=== PATIENT | female | born 1970 | race Caucasian/White ===

== ENCOUNTER 2018-03-07 08:34 | Day surgery (SDC) | payer OTHER ==
[~2018-03-07] VITALS: Ht 162.6 cm; Wt 64.9 kg
[~2018-03-07 08:34] MED LIST: TOPAMAX25 MG PO
--- NOTE | 2018-03-07 11:10 | NUR ---
03/07/18 1110 Kellie Joya 1103 PT ARRIVED TO PACU, WITH BP CUFF IN LOW LEFT LEG DUR TO PERVIOUS PROCEDURES. PT REACTIVE. RESP EVEN AND UNLABORED.
--- NOTE | 2018-03-07 12:09 | NUR ---
TOO SLEEPY SO WILL OBSERVE LONGER.
--- NOTE | 2018-03-07 15:13 | NUR ---
at 1207 on return pt very sleepy friend in room. allow pt to sleep.
--- NOTE | 2018-03-07 15:14 | NUR ---
1500 friend reports pt ready to go home.
--- NOTE | 2018-03-07 15:14 | NUR ---
le 1320 pt conts to sleep. friend at bedside. resp deep even.
--- NOTE | 2018-03-07 15:18 | NUR ---
when upto wc a little dizzy. enc to go slow.
--- NOTE | 2018-03-08 08:47 | OR ---
[facility] [address] [place], [place] [address] Signed DATE OF OPERATION: 03/07/2018 SURGEON: Joby Leon MD PREOPERATIVE DIAGNOSES: 1. Personal history of colonic polyps in 1992. 2. Constipation. 3. Hemorrhoidectomy. 4. Possible paternal uncle with colon cancer. POSTOPERATIVE DIAGNOSIS: Long redundant colon. PROCEDURE: Colonoscopy without biopsy. ESTIMATED BLOOD LOSS: None. 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 She had colonic polyps removed around 1992 over in [place], [place]. She thinks maybe her paternal uncle had colon cancer, but she is not sure. She also has chronic constipation and goes to bathroom every 4-5 days. She talked about previous hemorrhoid surgery. In the office, I gave her a pamphlet on colonoscopy. We looked at that together along with the risks including, but not limited to gas bloating, crampy abdominal pain, bleeding, perforation, requiring surgery, and missed diagnosis. We also discussed the need for IV conscious sedation. She had expressed understanding and wished to proceed. PROCEDURE NOTE: Nicole was taken into our endoscopy suite and placed in the left lateral decubitus position. She was given 12 mg of Versed and 200 mcg fentanyl to cover the entire case. A digital rectal exam was performed and this was unremarkable. The adult colonoscope was introduced and advanced under direct visualization of camera. We found that she has a long redundant colon. There was quite a bit of colon between the splenic and hepatic flexures. We eventually made our way around hepatic flexure and into the right colon. We were never 100% satisfied that we saw the cecum. We thought maybe we saw the appendiceal orifice, but we were not sure. We never could comfortably identify the ileocecal valve or [place]. Consequently, she might consider a barium enema to make Electronically Signed By: JOBY LEON MD 03/08/18 0847 PATIENT NAME: NICOLE ADAM OPERATIVE REPORT DATE OF : 66 REPORT #: [id number] PHYSICIAN: JOBY LEON MD PCP: Miguel Richmond DO REPORT IS CONFIDENTIAL AND NOT TO BE RELEASED WITHOUT AUTHORIZATION [facility] [address] [place] [id number] Signed sure the cecum was clear of any lesions. However, prep was good. The scope was then slowly withdrawn. We saw no pathology throughout her long redundant colon. The rectum was unremarkable. Upon retroflexion of the scope, there was no additional pathology noted above the anal canal. After this, the gas was suctioned out. The colonoscope removed. Nicole tolerated the procedure quite well. RECOMMENDATIONS: I will see Nicole back in my office in 7 to 14 days to review her results. We will recommend a barium enema for her to evaluate that right colon and cecum. Joby Leon MD ALB/MODL /[id number] cc: Serjio ConnellMD Tara MD Andrew L Bower, MD Jonas H Oltman, DO Michael John Brunsman, MD Delores Shaikh MD Copies: SERJIO CONNELL MD, KATHERINE MD BOWER,JOBY Richmond,Miguel CROSS,JONO HILL MD Electronically Signed By: JOBY LEON MD 03/08/18 0847 PATIENT NAME: NICOLE ADAM OPERATIVE REPORT DATE OF : 66 REPORT #: [id number] PHYSICIAN: JOBY LEON MD PCP: Miguel Richmond DO REPORT IS CONFIDENTIAL AND NOT TO BE RELEASED WITHOUT AUTHORIZATION [facility] [address] [place] [address] [place] [address] Signed DELORES SHAIKH MD Electronically Signed By: JOBY LEON MD 03/08/18 0847 PATIENT NAME: NICOLE ADAM OPERATIVE REPORT DATE OF : 66 REPORT #: [id number] PHYSICIAN: JOBY LEON MD PCP: Miguel Richmond DO REPORT IS CONFIDENTIAL AND NOT TO BE RELEASED WITHOUT AUTHORIZATION
== END 2018-03-07 15:20 | disposition home or self-care (01) ==
LOC: DS 08:34 → OPS 08:34 → DS 09:45 → OPS 15:20
PROVIDERS: Colon & Rectal Surgery
PROC: 0DJD8ZZ Inspection of Lower Intestinal Tract, Via Natural or Artificial Opening Endoscopic (ICD-10-PCS; principal; 2018-03-07 09:45)
DX: Q43.8 Other specified congenital malformations of intestine (principal); K59.09 Other constipation; Z86.010 Personal history of colon polyps; Z98.890 Other specified postprocedural states; Z88.8 Allergy status to other drugs, medicaments and biological substances; Z79.899 Other long term (current) drug therapy
CPT/HCPCS: 36415; 84703; 99153; G0500; J2250; J3010; J7120